=== PATIENT | female | born 1965 | race Caucasian/White ===

== ENCOUNTER 2020-04-18 15:08 | Emergency (ER) | payer MEDICAID ==
[~2020-04-18] VITALS: Ht 172.7 cm; Wt 64.4 kg
[2020-04-18] MEDS ORDERED: LEVO150T98 PO (15:56)
[2020-04-18] MEDS ORDERED: PRO10 PO (15:56)
[2020-04-18] MEDS ORDERED: BUSP30TA2 PO (15:56)
[2020-04-18 15:57] VITALS: BP_SYST 119
--- NOTE | 2020-04-18 16:02 | NUR ---
PATIENT RETURNED TO WAITING AREA PENDING BED AVAILABILITY, ERMD ADVISED; CERVICAL COLLAR
--- NOTE | 2020-04-18 16:43 | NUR ---
PATIENT TO ER #1 MEAT BONER AND SLICER, SAO2, ABP
--- NOTE | 2020-04-18 16:50 | NUR ---
DR SAMPSON IN TO ASSESS
[2020-04-18] MEDS ORDERED: NACL 0.9% 1,000 ML IV ONE (16:51)
--- NOTE | 2020-04-18 17:05 | NUR ---
BIB WORK FOR INGESTION OF 150MG OF TRAZADONE. PT MISTAKENLY GIVEN MEDICATION AT 1600 AT 1615 BECAME LIGHTHEADED AND PASSES OUT FALLING AND HITTING HER HEAD. UPON ARRIVAL, AAO, CLEAR MENTATION. NO COMPLAINTS RESP UNLABORED, SKIN WARM AND DRY. COMMUNICATES CLEARLY . NO DISTRESS
[2020-04-18 17:10] LABS: EOSINOPHILS # (AUTO) 0.1 K/uL (0.0-0.4); LYMPHOCYTES # (AUTO) 1.2 K/uL (1.0-5.5); MEAN CORPUSCULAR HEMOGLOBIN 30 pg (27-31); MONOCYTES # (AUTO) 0.4 K/uL (0.0-1.0); NEUTROPHILS # (AUTO) 2.4 K/uL (1.8-7.7); RED BLOOD CELL COUNT(AUTO) 3.73 MIL/uL (4.2-6.2)
[2020-04-18 17:23] LABS: BASOPHILS % (AUTO) 0.7 % (0.0-2.0); EOSINOPHILS % (AUTO) 1.4 % (0.0-4.0); HEMATOCRIT 33.7 % (36-48); LYMPHOCYTES % (AUTO) 29.6 % (20.5-51.5); MEAN CORPUSCULAR HGB CONC 33 % (32-36); MEAN CORPUSCULAR VOLUME 90 fL (79.0-98.0); NEUTROPHILS % (AUTO) 59.3 % (40.0-70.0); PLATELET COUNT (AUTO) 162 K/uL (130-430); RED CELL DISTRIBUTION WIDTH 13.8 % (9.0-15.0)
[2020-04-18 17:25] LABS: CALCIUM 8.4 mg/dL (8.4-11.0); CREATININE 0.83 mg/dL (0.55-1.30); POTASSIUM 4.3 mmol/L (3.5-5.1)
--- NOTE | 2020-04-18 17:26 | NUR ---
spoke to poison control [id number]. No expected problems/ no issues No w/u
[2020-04-18 17:37] LABS: ALBUMIN 3.6 g/dL (3.4-4.8); TOTAL BILIRUBIN 0.4 mg/dL (0.0-1.0)
[2020-04-18 18:39] LABS: BILIRUBIN,URINE NEGATIVE (NEGATIVE); BLOOD, URINE NEGATIVE (NEGATIVE); CLARITY/URINE CLEAR (CLEAR); GLUCOSE,URINE NEGATIVE (NEGATIVE); KETONES,URINE NEGATIVE (NEGATIVE); LEUKOCYTE ESTERASE ,URINE TRACE (NEGATIVE); NITRITE, URINE NEGATIVE (NEGATIVE); PH,URINE 7.5 (5.0-8.0); PROTEIN URINE NEGATIVE (NEGATIVE); UROBILINOGEN,URINE 0.2 (0.2-1.0)
[2020-04-18 18:45] LABS: COLOR,URINE STRAW (YELLOW)
[2020-04-18 18:55] LABS: BACTERIA,URINE FEW /HPF (None Seen); RBC,URINE NONE SEEN /HPF (0-3); WBC,URINE NONE SEEN /HPF (0-3)
[2020-04-18] MEDS ORDERED: IBUPROFEN 600 MG TABLET PO ONE (19:30)
[2020-04-18] MEDS ORDERED: IBUPROFEN 600 MG TABLET ONE (19:43)
--- NOTE | 2020-04-18 19:45 | NUR ---
Patient given written and verbal discharge instructions and verbalizes understanding. ER MD discussed with patient the results and treatment provided. Patient in stable condition. ID arm band removed. IV catheter removed intact and dressing applied, no active bleeding. Rx of IBU given. Patient educated on pain management and to follow up with PMD. Pain Scale 2/10 Opportunity for questions provided and answered. Medication side effect fact sheet provided.
[2020-04-18 23:14] VITALS: BP_SYST 123
== END 2020-04-18 23:14 | disposition home or self-care (01) ==
LOC: SED 15:08
DX: S16.1XXA Strain of muscle, fascia and tendon at neck level, initial encounter (principal); S00.81XA Abrasion of other part of head, initial encounter; E07.9 Disorder of thyroid, unspecified; R55 Syncope and collapse; Z88.1 Allergy status to other antibiotic agents; W18.09XA Striking against other object with subsequent fall, initial encounter; Y93.89 Activity, other specified; Y92.89 Other specified places as the place of occurrence of the external cause; Y99.8 Other external cause status
CPT/HCPCS: 36415; 70450; 71045; 72125; 80053; 81000; 84484; 85025; 93005; 96360; 99285; J7030